=== PATIENT | female | born 1955 | race Native Hawaiian/Other Pacific Islander ===

== ENCOUNTER 2016-06-11 11:55 | Emergency (ER) | payer OTHER ==
[2016-06-11] MEDS ORDERED: ONDANSETRON 4 MG/2ML 2 ML VIAL ONE (13:24)
[2016-06-11] MEDS ORDERED: SODIUM CHLORIDE 0.9% 1,000 ML ONE (13:24)
[2016-06-11] MEDS ORDERED: KETOROLAC TROMETHAMINE 30 MG/ML 1 ML VIAL ONE (13:25)
[2016-06-11 14:04] LABS: ABSOLUTE NEUTROPHIL COUNT 3.4 K/mm3 (1.8-7.7); BASO # 0.1 K/mm3 (0.0-0.2); BASO % 0.9 % (0.2-1.0); EOS % 0.2 % (0.9-2.9); HEMATOCRIT 51.2 % (37.0-47.0); HEMOGLOBIN 16.7 gm/l (12.0-16.0); IMM NEUT% 0.4 % (0-1); LYMPH # 1.1 (1.0-4.8); MEAN CELL VOLUME 94.3 fl (81.0-99.0); MEAN CORPUSCULAR HEMOGLOBIN 30.8 pg (27.0-31.0); MEAN CORPUSCULAR HGB CONC 32.6 g/dl (33.0-37.0); MONO # 0.7 (0.0-0.8); MONO % 13.6 % (4-12); NEUT % 63.9 % (43-75); PLATELET COUNT 235 K/mm3 (130-400)
[2016-06-11 14:07] LABS: ALB/GLOB RATIO 1.3 (>1.0); CALCIUM 9.2 mg/dL (8.6-10.3)
--- NOTE | 2016-06-11 14:27 | RAD ---
Exam: Two-view chest COMPARISON: 02/12/2015 and thoracic spine 01/18/2014 INDICATION: Weakness, headache and vomiting since 06/09/2016. FINDINGS: PA and lateral views of the chest were obtained. Cardiac silhouette is within normal limits and stable. There is chronic coarsening of the bronchovascular markings. There is no pulmonary edema, focal airspace disease or pleural effusion. Levoconvex curvature of the lower thoracic spine is appreciated. Minor loss of height at approximately T7 is unchanged. Surgical clips are seen within the upper abdomen. IMPRESSION: Stable exam since 02/12/2015 without acute pulmonary process or significant interval change.
[2016-06-11] MEDS ORDERED: ALBUTEROL/IPRATROPIUM 2.5/0.5 MG 3 ML/EACH DOSE ONE (14:33)
== END 2016-06-11 15:36 | disposition home or self-care (01) ==
LOC: ED 11:55
DX: J09.X2 Influenza due to identified novel influenza A virus with other respiratory manifestations (principal); E66.9 Obesity, unspecified; F41.9 Anxiety disorder, unspecified; F32.9 Major depressive disorder, single episode, unspecified
CPT/HCPCS: 85025; 80053; 71020; 87804; 94640; 96375; 99283 ×2; 96374; 96361 ×2; J1885; J2405; J7030